=== PATIENT | male | born 1950 ===

== ENCOUNTER → 2017-03-26 12:55 | Outpatient (CLI) | payer OTHER, BC | END | disposition home or self-care (01) | LOC: LAB 12:55 | DX: E11.9 Type 2 diabetes mellitus without complications (principal); D64.89 Other specified anemias; N39.0 Urinary tract infection, site not specified; R80.9 Proteinuria, unspecified; C61 Malignant neoplasm of prostate; C18.9 Malignant neoplasm of colon, unspecified; E03.8 Other specified hypothyroidism; E87.1 Hypo-osmolality and hyponatremia; E55.9 Vitamin D deficiency, unspecified; K92.0 Hematemesis; E78.4 Other hyperlipidemia ==

== ENCOUNTER 2017-03-27 12:32 | Outpatient (CLI) | payer OTHER, BC | END 2017-03-27 13:45 | disposition home or self-care (01) | LOC: LAB 12:32 | DX: E11.9 Type 2 diabetes mellitus without complications (principal); D64.89 Other specified anemias; N39.0 Urinary tract infection, site not specified; R80.9 Proteinuria, unspecified; C61 Malignant neoplasm of prostate; C18.9 Malignant neoplasm of colon, unspecified; E03.8 Other specified hypothyroidism; E87.1 Hypo-osmolality and hyponatremia; E55.9 Vitamin D deficiency, unspecified; K92.0 Hematemesis; E78.4 Other hyperlipidemia ==